=== PATIENT | male | born 1995 | race Caucasian/White ===

== ENCOUNTER 2020-02-01 09:40 | Day surgery (SDC) | payer BC, OTHER ==
[~2020-02-01] VITALS: Ht 180.3 cm; Wt 77.1 kg
--- NOTE | ~2020-02-01 | OP ---
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 PROCEDURE: Open Bankart repair. SURGEON: Pinky Kidd MD COLLEGE ADMINISTRATOR: OFELIA Rose INTRAOPERATIVE COMPLICATIONS: None. SUMMARY OF PATHOLOGIC FINDINGS: The patient did have a mild fracture of the anterior one-fifth of the glenoid; however, the bone was in place and I did not feel like he needed a Latarjet procedure. For this reason, a classic open Bankart capsular shift back stack was performed. OPERATIVE SUMMARY IN DETAIL: After obtaining the appropriate preoperative orthopedic surgery consent as well as anesthetic consultation, evaluation and clearance, the patient was brought to the operating room and placed on the operating table in supine position. After general laryngeal mask airway was administered, the patient was placed in beach chair position. All pressure points were well padded. He was held firmly to the operating table using the vacuum pack suction system. Right upper extremity and shoulder were then prepped and draped in routine sterile fashion. The arm was held in the Trimano arm holding device. At this point, appropriate timeout was taken and agreed upon by all given the patient's unique identifiers. Deltopectoral incision was taken down to the cephalic vein being protected throughout the entire case. The patient was very muscular; however, the deltoid was retracted laterally using the brown retractor to the conjoined tendon also very muscular was retracted medially gently using the PCL retractor. At this point, the subscapularis was gently and meticulously lifted off of the anterior capsule in 1 layer. This was retracted anteriorly while the capsule was then also retracted. Dissection was carried down to the anterior and anterior inferior aspect of the glenoid. Fukuda retractor was then utilized to retract the humeral head. A small bur was then utilized to gently prepare the implantation site for positioning, suture tacks was then placed, 4 in total from the anterior superior aspect of the Bankart lesion to the inferior aspect of the Bankart lesion. Having completed placement of the suture tacks, the FiberWires were passed through the capsule. With the capsule being held very, very tight, these were then tied inferiorly inferior, anterior, direct anterior and anterior superior. Having completed these, the capsule was then reapproximated using a similar suture tacks in a capsular advancement fashion. The superior aspect of the capsule was then also reapproximated in a [id number] style to complete the capsular shift. Subscapularis was then reapproximated lateral to the bicipital groove again using suture anchors. This resulted in excellent reapproximation of the capsule labrum as well as capsular shift. Having completed this, the wound was then copiously irrigated and closed by Neisha OPERATIVE REPORT [id number] MARY GRAFF FA with #1 Vicryl, 2-0 Vicryl and skin geovanna. It is of note that the rotator cuff interval was also closed with #2 Ethibond. Having completed this, the patient was placed in a shoulder immobilizer, was awakened and taken to the recovery room in stable condition. All final needle and sponge counts were correct. TRANSINT:[id number] Voice Confirmation ID: [id number] DOCUMENT ID: [id number] BERNABE CANNON, PINKY PRADO CC: [id number] DICTATION DATE: 02/05/20 1105 FLARE STITCHER: 02/05/20 1256 [facility] 02/01/20 [facility] [address] [place] [address]
[~2020-02-01 09:40] MED LIST: NORCO 10/325 TA1 TA1 PO; PERCOCET 10/3251 TA1 PO
[2020-02-01 10:54] VITALS: BP 120/53; Ht 180.3 cm; Wt 77.1 kg
[2020-02-01] MEDS ORDERED: PERCOCET 10-321 EAC1 PO (13:47)
== END 2020-02-01 16:25 | disposition home or self-care (01) ==
LOC: D.OPS 09:40
PROVIDERS: ATTEND Orthopaedic Surgery
DX: M25.511 Pain in right shoulder (principal); S43.004A Unspecified dislocation of right shoulder joint, initial encounter; S42.141A Displaced fracture of glenoid cavity of scapula, right shoulder, initial encounter for closed fracture; X58.XXXA Exposure to other specified factors, initial encounter; M25.311 Other instability, right shoulder